=== PATIENT | female | born 1955 | race Hispanic/Latino ===

== ENCOUNTER 2017-03-25 10:51 | Emergency (ER) | payer OTHER, SELFPAY ==
[2017-03-25] MEDS ORDERED: Adacel (T-DAP) 0.5 ML VIAL ONE (11:53)
[2017-03-25] MEDS ORDERED: Bacitracin Zinc 1 Packet ONE (12:11)
== END 2017-03-25 12:15 | disposition home or self-care (01) ==
LOC: ERS 10:51
DX: S61.211A Laceration without foreign body of left index finger without damage to nail, initial encounter (principal); S61.213A Laceration without foreign body of left middle finger without damage to nail, initial encounter; W01.0XXA Fall on same level from slipping, tripping and stumbling without subsequent striking against object, initial encounter; W45.8XXA Other foreign body or object entering through skin, initial encounter
CPT/HCPCS: 12001; 90471; 90715

== ENCOUNTER 2025-04-22 11:39 | Day surgery (SDC) | payer SELFPAY ==
[2025-04-22] MEDS ORDERED: Acetaminophen 500 MG TAB ONE (13:13)
[2025-04-22] MEDS: Acetaminophen 500 MG TAB PO SCH (13:14)
[2025-04-22] MEDS: diphenhydrAMINE 25 MG CAP PO SCH (13:14)
[2025-04-22 16:41] VITALS: BP 114/60; TEMP 98.3
== END 2025-04-22 14:30 | disposition home or self-care (01) ==
LOC: ONC/OP 11:39
PROVIDERS: ATTEND Family Medicine
DX: D69.6 Thrombocytopenia, unspecified (principal); D64.9 Anemia, unspecified
CPT/HCPCS: 36430; 86850; 86900; 86901; P9035